=== PATIENT | male | born 1975 | race Two or more races ===

== ENCOUNTER 2024-02-16 15:41 | Inpatient (IN) | payer OTHER ==
[~2024-02-16] VITALS: Ht 165.1 cm; Wt 108.9 kg
[2024-02-16] MEDS ORDERED: LIPITOR (15:53)
[2024-02-16] MEDS ORDERED: UNK BP MED (15:53)
[2024-02-16] MEDS ORDERED: ASPIRIN (15:53)
[2024-02-16] MEDS ORDERED: METFORMIN (15:53)
[2024-02-16 16:07] LABS: BASOPHILS # (AUTO) 0.1 K/UL (0.0-0.2); BASOPHILS % (AUTO) 0.5 % (0.0-2.0); EOSINOPHILS # (AUTO) 0.1 K/uL (0.0-0.7); EOSINOPHILS % (AUTO) 0.8 % (0.0-7.0); HEMATOCRIT 38.8 % (36.7-47.1); HEMOGLOBIN 12.6 g/dL (12.5-16.3); LYMPHOCYTES # (AUTO) 2.6 K/uL (0.8-4.8); LYMPHOCYTES % (AUTO) 21.3 % (20.5-51.5); MEAN CORPUSCULAR HEMOGLOBIN 26.3 uug (23.8-33.4); MEAN CORPUSCULAR HGB CONC 32 g/dL (32.5-36.3); MEAN CORPUSCULAR VOLUME 81.3 fL (73.0-96.2); MONOCYTES # (AUTO) 0.8 K/uL (0.1-1.30); MONOCYTES % (AUTO) 6.4 % (0.0-11.0); NEUTROPHILS # (AUTO) 8.8 K/uL (1.8-8.9); PLATELET COUNT (AUTO) 308 K/uL (152-348); RED BLOOD CELL COUNT(AUTO) 4.77 MIL/uL (4.06-5.63); RED CELL DISTRIBUTION WIDTH 15.1 % (12.1-16.2); WHITE BLOOD COUNT (AUTO) 12.4 K/uL (3.6-10.2)
[2024-02-16 16:11] LABS: CALCIUM 9.2 mg/dL (8.5-10.1); CARBON DIOXIDE 25 mmol/L (21-32); CHLORIDE 106 mmol/L (98-107); CREATININE 1.1 mg/dL (0.6-1.3); GLUCOSE 186 mg/dL (74-106); POTASSIUM 3.7 mmol/L (3.5-5.1); SODIUM SERUM 144 mmol/L (136-145); UREA NITROGEN, BLOOD 11 mg/dL (7-18)
[2024-02-16 16:13] LABS: DIFFERENTIAL COMMENT 1
[2024-02-16] MEDS ORDERED: ACETAMINOPHEN 325 MG TABLET PO PRN (23:45)
[2024-02-16] MEDS ORDERED: DEXTROSE 50% 50 ML DISP.SYRIN IV PRN (23:45)
[2024-02-16] MEDS ORDERED: ONDANSETRON 4 MG/2 ML VIAL IV PRN (23:45)
[2024-02-17] VITALS (8 sets, daily range): BP systolic 131–178; BP diastolic 73–93; TEMP 97.6–98.9; O2SAT 95–98
[2024-02-17] MEDS: ENOXAPARIN SODIUM 40 MG/0.4 ML DISP.SYRIN SQ SCH (01:00)
[2024-02-17] MEDS ORDERED: hydrALAZINE HCL 20 MG/1 ML VIAL IV PRN (01:30)
[2024-02-17] MEDS: ENOXAPARIN SODIUM 60 MG/0.6 ML DISP.SYRIN SQ ONE (01:40)
[2024-02-17] MEDS: BLOOD SUGAR DIAGNOSTIC 1 EACH STRIP VI SCH (06:30)
[2024-02-17 07:11] LABS: BASOPHILS % (AUTO) 0.3 % (0.0-2.0); EOSINOPHILS # (AUTO) 0.1 K/uL (0.0-0.7); EOSINOPHILS % (AUTO) 0.9 % (0.0-7.0); HEMATOCRIT 39.8 % (36.7-47.1); HEMOGLOBIN 13.1 g/dL (12.5-16.3); LYMPHOCYTES # (AUTO) 2.6 K/uL (0.8-4.8); MEAN CORPUSCULAR HEMOGLOBIN 26.7 uug (23.8-33.4); MEAN CORPUSCULAR HGB CONC 33 g/dL (32.5-36.3); MEAN CORPUSCULAR VOLUME 81.2 fL (73.0-96.2); MONOCYTES # (AUTO) 0.9 K/uL (0.1-1.30); NEUTROPHILS # (AUTO) 8.6 K/uL (1.8-8.9); NEUTROPHILS % (AUTO) 70.8 % (38.5-71.5); PLATELET COUNT (AUTO) 314 K/uL (152-348); RED CELL DISTRIBUTION WIDTH 14.9 % (12.1-16.2); WHITE BLOOD COUNT (AUTO) 12.2 K/uL (3.6-10.2)
[2024-02-17 07:24] LABS: CREATININE 0.7 mg/dL (0.6-1.3); MAGNESIUM 2.1 mg/dL (1.8-2.4); PHOSPHOROUS 3.4 mg/dL (2.5-4.9); POTASSIUM 3.8 mmol/L (3.5-5.1)
[2024-02-17 07:54] LABS: DIFFERENTIAL COMMENT 1
[2024-02-17] MEDS: ASPIRIN EC 81 MG TABLET.DR PO SCH (08:17)
[2024-02-17] MEDS: INSULIN REGULAR, HUMAN 300 UNIT/3 ML VIAL SQ PRN (08:22)
[2024-02-17] MEDS: ENOXAPARIN SODIUM 100 MG/ML DISP.SYRIN SQ SCH (08:45)
[2024-02-17] MEDS ORDERED: OMEG-49 PO (10:34)
[2024-02-17] MEDS ORDERED: ROSU5TAB13 PO (10:34)
[2024-02-17] MEDS ORDERED: AMLO-212 PO (10:34)
[2024-02-17] MEDS ORDERED: ASPI81TA31 PO (10:34)
[2024-02-17] MEDS ORDERED: ERTU5TAB PO (10:34)
[2024-02-17] MEDS ORDERED: METO-356 PO (10:34)
[2024-02-17] MEDS: LOSARTAN POTASSIUM 50 MG TABLET PO SCH (11:11)
[2024-02-17] MEDS: METOPROLOL TARTRATE 50 MG TABLET PO SCH (11:12)
[2024-02-17] MEDS: CLOPIDOGREL 75 MG TABLET PO ONE (11:15)
[2024-02-17] MEDS: INSULIN REGULAR, HUMAN 300 UNITS/3 ML VIAL SQ PRN (12:55)
[2024-02-17] MEDS: ATORVASTATIN 40 MG TABLET PO SCH (20:31)
[2024-02-18 00:48] VITALS: BP 126/82; TEMP 98.1; O2SAT 97
[2024-02-18] MEDS ORDERED: CLOPIDOGREL 75 MG TABLET PO SCH (09:00)
== END 2024-02-18 04:30 | disposition short-term general hospital (02) | DRG 190 ==
LOC: ER 15:43 → TELE3 23:00
PROVIDERS: ADMIT Nurse Practitioner Acute Care; ATTEND Nurse Practitioner Acute Care
DX: I21.4 Non-ST elevation (NSTEMI) myocardial infarction (principal); E11.9 Type 2 diabetes mellitus without complications; Z95.1 Presence of aortocoronary bypass graft; I25.110 Atherosclerotic heart disease of native coronary artery with unstable angina pectoris; E66.01 Morbid (severe) obesity due to excess calories; Z68.39 Body mass index [BMI] 39.0-39.9, adult; E78.5 Hyperlipidemia, unspecified; I25.2 Old myocardial infarction; I10 Essential (primary) hypertension; Z98.61 Coronary angioplasty status; Z79.84 Long term (current) use of oral hypoglycemic drugs; Z91.148 Patient's other noncompliance with medication regimen for other reason; Z79.82 Long term (current) use of aspirin
CPT/HCPCS: 36415; 71045; 83735; 84100; 84484; 85025; 93005; 93307; A4663; G0378; J1650; J1815